=== PATIENT | male | born 1965 | race Caucasian/White ===

== ENCOUNTER 2016-08-22 09:54 | Emergency (ER) | payer OTHER ==
--- NOTE | 2016-08-22 10:23 | UCPHY ---
H & P Patient Type: Established Chief Complaint Nursing Narrative: rash started on . Initially Right wrist now on chest and head and both arms. Pt has RA and is on prednisone./ Humira. denies f/c/recent travel Time Seen by Provider: 08/22/16 10:01 HPI/ROS: CHIEF COMPLAINT: Pruritic rash HISTORY OF PRESENT ILLNESS: The patient presents to the urgent care with complaints of a progressive pruritic rash which began on . The patient developed a erythematous papular pruritic rash initially on his wrist which have now spread to his arms and back. The patient denies any difficulty breathing or wheezing. The patient denies new exposures, new foods, new pets or new medications. The patient does have a history of rheumatoid arthritis. He is currently on Humira every 2 weeks as well as 10 mg of daily prednisone. The patient denies additional acute complaints. The patient does have chronic arthralgias from his rheumatoid arthritis. REVIEW OF SYSTEMS: A comprehensive 10 point review of systems is otherwise negative aside from elements mentioned in the history of present illness. Source: Patient - Medical/Surgical History PMH: Past medical history: Rheumatoid arthritis Other PMH: PCP Tk Grewal. Flu vacc NONE r/t allergy. Tetanus UTD. RA. Shoulder Bone spur removal . - Family History Significant Family History: No pertinent family hx - Social History Smoking Status: Former smoker Alcohol Use: None Drug Use: None - Physical Exam Exam: General Appearance: Alert, no distress Eyes: Pupils equal and round no pallor or injection ENT, Mouth: Mucous membranes moist Respiratory: There are no retractions, lungs are clear to auscultation Cardiovascular: Regular rate and rhythm Gastrointestinal: Abdomen is soft and nontender, no masses, bowel sounds normal Neurological: A&O, normal motor function, normal sensory exam, normal cranial nerves Skin: Diffuse erythematous urticarial type rash noted to the right and left arm and back. Musculoskeletal: Neck is supple nontender Extremities: symmetrical, full range of motion Constitutional: Initial Vital Signs Temperature (C) 36.8 C 08/22/16 10:11 Heart Rate 85 08/22/16 10:11 Respiratory Rate 16 08/22/16 10:11 Blood Pressure 124/75 H 08/22/16 10:11 O2 Sat (%) 94 08/22/16 10:11 O2 Delivery Mode Room Air Allergies/Adverse Reactions: egg [Egg] Allergy (Verified 08/22/16 10:15) phenobarbital [Phenobarbital] Allergy (Verified 08/22/16 10:15) Home Medications: Medication Instructions Recorded predniSONE 60 mg PO DAILY 5 Days 09/26/11 Cyclobenzaprine [Flexeril 10 MG 05/04/13 (RX)] Humira 01/29/15 Hydrocodone/APAP 5/325 [[place] 1 - 2 tab PO HS PRN #8 tab 01/29/15 5/325] predniSONE [Prednisone] 10 mg PO DAILY #60 tablet 08/22/16 Medical Decision Making ED Course/Re-evaluation: The patient presents to the urgent care with a rash consistent with a contact dermatitis verses unspecified urticaria. The patient has no evidence of anaphylaxis, respiratory involvement or or pharyngeal involvement. Patient has no obvious precipitant to this condition. I will increase the patient's prednisone to 40 mg a day for 5 days and then taper 10 mg a day for subsequent five-day intervals until he is back at his baseline of 10 mg. The patient is advised to continue using Benadryl for itching the patient will be discharged from the urgent care with customary aftercare and return precautions. Differential Diagnosis: Differential diagnosis considered includes drug reaction, urticaria, angioedema , anaphylaxis Departure - Departure Disposition: Home, Routine, Self-Care Clinical Impression: Urticaria Condition: Good Instructions: Urticaria (ED) Additional Instructions: 1. Please take prednisone 40 mg daily for 5 days then 30 mg daily for 5 days then 20 mg daily for 5 days then resume your regular 10 mg dose. 2. Please continue to use Benadryl as needed for itching. 3. Please return to the urgent care or emergency department for markedly worsening symptoms, difficulty breathing or other concerns. 4. Please follow up with your regular physician and/or nailhead setter within the next 1-2 weeks. Referrals: Fidelia Grewal MD [Primary Care Provider] - As per Instructions Prescriptions: predniSONE [Prednisone] 10 mg PO DAILY #60 tablet - PQRS PQRS Measurement: Not applicable
[2016-08-22 16:06] VITALS: BP 124/75; PULSE 85; RESP 16; TEMP 98.2; O2SAT 94
== END 2016-08-22 10:46 | disposition home or self-care (01) ==
LOC: CED 09:54
DX: L50.9 Urticaria, unspecified (principal); M06.9 Rheumatoid arthritis, unspecified; Z87.891 Personal history of nicotine dependence
CPT/HCPCS: 99214-PO; G0463-PO

== ENCOUNTER 2017-10-16 07:57 | Emergency (ER) | payer OTHER ==
--- NOTE | 2017-10-16 09:25 | EDPHY ---
H & P Time Seen by Provider: 10/16/17 09:05 HPI/ROS: 52-year-old male presents complaining fall landing awkwardly on his left wrist yesterday. He complains of left wrist pain. He has a history of rheumatoid arthritis for which he is on Enbrel, he takes Vicodin 1 daily in the morning and has Vicodin for breakthrough pain as well. Review of systems As per HPI General no fever no chills no weakness HEENT no eye pain no eye discharge. No eye redness, no sore throat Respiratory no cough, no shortness of breath Cardiac no chest pain, no peripheral edema GI no abdominal pain, no diarrhea, no constipation, no nausea, no vomiting no flank pain, no hematuria, no dysuria Musculoskeletal no myalgias, positive joint pain Heme no easy bruising, no easy bleeding Endo no polyuria, no polydipsia Skin no rashes, no pruritus Neuro no syncope, no dizziness, no headaches Psych is no suicidal ideation, no homicidal ideation Past Medical/Surgical History: Rheumatoid arthritis Social History: Denies alcohol or drug use Smoking Status: Former smoker Physical Exam: 52-year-old male alert and oriented no acute distress nontoxic appearance, afebrile Alert and oriented in no acute distress nontoxic appearance, afebrile Atraumatic normocephalic Neck no JVD Lungs clear to auscultation, no respiratory distress Heart regular rate and rhythm Extremities no cyanosis clubbing edema Left wrist-swelling, decreased range of motion, good pulses radial and ulnar Tender to palpation at mid posterior wrist Full range of motion of digits, good capillary refill Full range of motion of the elbow Constitutional: Initial Vital Signs Temperature (C) 36.6 C 10/16/17 08:03 Heart Rate 68 10/16/17 08:03 Respiratory Rate 18 10/16/17 08:03 Blood Pressure 132/75 H 10/16/17 08:03 O2 Sat (%) 97 10/16/17 08:03 O2 Delivery Mode Room Air Allergies/Adverse Reactions: egg [Egg] Allergy (Verified 08/22/16 10:15) phenobarbital [Phenobarbital] Allergy (Verified 08/22/16 10:15) Home Medications: Medication Instructions Recorded predniSONE 60 mg PO DAILY 5 Days tab 09/26/11 Cyclobenzaprine [Flexeril 10 MG 11/08/13 (RX)] Humira 01/29/15 Hydrocodone/APAP 5/325 [[place] 1 - 2 tab PO HS PRN #8 tab 01/29/15 5/325] predniSONE [Prednisone] 10 mg PO DAILY #60 tablet 08/22/16 Medical Decision Making - Diagnostics Imaging Results: Imaging Impressions Wrist X-Ray 10/16/17 08:06 Impression: Query nondisplaced triquetral fracture. Results called and discussed with [facility] physician on October 16, 2017 at 9:09 a.m. ED Course/Re-evaluation: Patient seen and evaluated for left wrist pain after a fall X-ray Triquetral fracture Impression Wrist fracture-triquetral all Plan Volar forearm splint Follow-up orthopedics-Dr. Lilly Patient plans to use his Vicodin that he has for breakthrough pain for his rheumatoid for this pain as well Differential Diagnosis: Differential diagnosis considered but not limited to: Left wrist sprain, left wrist fracture Departure - Departure Disposition: Home, Routine, Self-Care Clinical Impression: Fracture of triquetral bone of left wrist Condition: Good Instructions: Wrist Fracture in Adults (ED) Referrals: Ajit Lilly MD [Medical Doctor] - As per Instructions
[2017-10-16] MEDS ORDERED: IBUPROFEN 600 MG TAB PO ONE (09:38)
[2017-10-16 09:46] VITALS: BP 146/85
== END 2017-10-16 09:44 | disposition home or self-care (01) ==
LOC: CED 07:57
PROC: 2W3DX1Z Immobilization of Left Lower Arm using Splint (ICD-10-PCS; principal; 2017-10-16)
DX: S62.112A Displaced fracture of triquetrum [cuneiform] bone, left wrist, initial encounter for closed fracture (principal); Z87.891 Personal history of nicotine dependence; W18.39XA Other fall on same level, initial encounter
CPT/HCPCS: 73110-PO

== ENCOUNTER → 2018-08-16 | Outpatient (CLI) | payer OTHER | LOC: CIMAGING 15:29 | PROVIDERS: ATTEND Family Medicine | DX: M25.821 Other specified joint disorders, right elbow (principal); M25.421 Effusion, right elbow | CPT/HCPCS: 73080-PO ==